=== PATIENT | female | born 1935 | race Caucasian/White ===

== ENCOUNTER 2022-06-30 22:05 | Inpatient (IN) | payer OTHER ==
[~2022-06-30] VITALS: Ht 157.5 cm; Wt 59.0 kg
[~2022-06-30 22:05] MED LIST: ALPR-341 PO; ASPI81TA47 PO; ATEN100T PO; ATOR80TA PO; IBUP-2030 PO
[2022-06-30] MEDS ORDERED: FUROSEMIDE 40MG/4ML VIAL IV ONE (22:15)
[2022-06-30] MEDS ORDERED: NITROGLYCERIN 50MG PREMIX 250 ML IV ONE (22:15)
[2022-06-30 22:33] LABS: BASOPHILS % 0.4 % (0.0-2.0); EOSINOPHILS % 2.1 % (0.0-5.0); HEMATOCRIT. 39.4 % (36.0-48.0); HEMOGLOBIN. 12.9 g/dL (12.0-16.0); LYMPHOCYTES % 19.3 % (20.0-50.0); MEAN CORPUSCULAR HEMOGLOBIN 29.9 pg (28.0-32.0); MEAN CORPUSCULAR VOLUME 91.4 fL (81.0-99.0); MEAN PLATELET VOLUME 8.4 fl (7.4-10.4); MONOCYTES % 6.5 % (2.0-8.0); NEUTROPHILS % 71.7 % (40.0-76.0); PLATELET 283 x1000/uL (130-400); RED BLOOD CELL COUNT 4.31 mill/uL (4.2-5.4); RED CELL DISTRIBUTION WIDTH 17.2 % (11.6-14.6)
[2022-06-30 22:43] LABS: CHLORIDE 108 mEq/L (98-107)
[2022-06-30 22:43] LABS: BG CARBOXYHEMOGLOBIN 0.6 % (0.5-1.5); BG FRACTION INSPIRED OXYGEN 50; BG HCO3 ACT 26.9 mmol/L (22.0-26.0); BG METHEMOGLOBIN 0.3 % (0.0-1.5); BG OXYGEN SATURATION 92.9 % (92.0-98.5); BG OXYHEMOGLOBIN 92.1 % (94.0-97.0); BG PCO2 47.8 mmHg (35.0-45.0); BG PH 7.368 (7.350-7.450); BG PO2 71.9 mmHg (75.0-100.0); BG SAMPLE SITE RIGHT RADIAL; BG TOTAL HEMOGLOBIN 12.8 g/dL (12.0-18.0); BG VENT MODE MASK - BIPAP
[2022-06-30 22:46] LABS: D-DIMER 1.58 mg/L FEU (<0.50); PARTIAL THROMBOPLASTIN TIME 27.9 sec (23.4-31.0); PROTHROMBIN TIME 11.2 sec (9.6-11.0)
[2022-07-01] VITALS (8 sets, daily range): BP systolic 116–142; BP diastolic 54–85
[2022-07-01] MEDS ORDERED: ACETAMINOPHEN 325MG TABLET PO PRN (00:15)
[2022-07-01] MEDS ORDERED: IPRATROPIUM/ALBUTEROL 0.5-3(2.5)MG/3ML NEB NEB PRN (00:15)
[2022-07-01] MEDS ORDERED: MAGNESIUM/ALUMINUM HYDROXIDE/SIMETHICONE 30ML UDC PO PRN (00:15)
[2022-07-01] MEDS ORDERED: CLONIDINE 0.1MG TABLET PO PRN (00:15)
[2022-07-01] MEDS ORDERED: IPRATROPIUM/ALBUTEROL 0.5-3(2.5)MG/3ML NEB NEB SCH (00:15)
[2022-07-01] MEDS ORDERED: ALBUTEROL (0.083%) 2.5MG/3ML NEB HHN PRN (00:45)
[2022-07-01] MEDS ORDERED: IPRATROPIUM BROMIDE (0.02%) 0.5MG/2.5ML NEB HHN PRN (00:45)
[2022-07-01] MEDS: IPRATROPIUM BROMIDE (0.02%) 0.5MG/2.5ML NEB HHN SCH ×2 (00:45→20:55)
[2022-07-01] MEDS: ALBUTEROL (0.083%) 2.5MG/3ML NEB HHN SCH ×3 (00:45→20:55)
[2022-07-01] MEDS ORDERED: DEXTROSE 50% WATER 50ML SYRINGE IV PRN (01:30)
[2022-07-01 01:31] LABS: CLARITY URINE CLEAR (CLEAR); COLOR URINE YELLOW (YELLOW); KETONES URINE NEGATIVE (NEGATIVE); LEUKOCYTE ESTERASE URINE NEGATIVE (NEGATIVE); NITRITE URINE NEGATIVE (NEGATIVE); OCCULT BLOOD URINE NEGATIVE (NEGATIVE); PROTEIN URINE NEGATIVE (NEGATIVE); SPECIFIC GRAVITY URINE 1.009 (1.005-1.030); UROBILINOGEN URINE 0.2 E.U./dL (0.2-1.0)
[2022-07-01 02:08] LABS: TOTAL IRON BINDING CAPACITY 277 ug/dL (250-450)
[2022-07-01 02:20] LABS: FERRITIN 83 ng/mL (10-291)
[2022-07-01 03:22] LABS: BG BASE EXCESS 3.8 mmol/L (-2.0-2.0); BG CARBOXYHEMOGLOBIN 0.3 % (0.5-1.5); BG DEOXYHEMOGLOBIN 2.2 % (0.0-5.0); BG FRACTION INSPIRED OXYGEN 100; BG HCO3 ACT 31.2 mmol/L (22.0-26.0); BG METHEMOGLOBIN 0.4 % (0.0-1.5); BG OXYGEN SATURATION 97.8 % (92.0-98.5); BG OXYHEMOGLOBIN 97.1 % (94.0-97.0); BG PCO2 61.1 mmHg (35.0-45.0); BG PH 7.326 (7.350-7.450); BG PO2 114.8 mmHg (75.0-100.0); BG SAMPLE SITE RIGHT RADIAL; BG TOTAL HEMOGLOBIN 12.3 g/dL (12.0-18.0); BG VENT MODE MASK - NRB
[2022-07-01 03:32] LABS: VITAMIN B12 SERUM 675 pg/mL (211-911)
[2022-07-01 05:04] LABS: BASOPHILS % 0.3 % (0.0-2.0); EOSINOPHILS % 0.3 % (0.0-5.0); HEMATOCRIT. 33.3 % (36.0-48.0); HEMOGLOBIN. 11.2 g/dL (12.0-16.0); LYMPHOCYTES % 14.6 % (20.0-50.0); MEAN CORPUSCULAR HEMOGLOBIN 30.5 pg (28.0-32.0); MEAN CORPUSCULAR VOLUME 91.1 fL (81.0-99.0); MEAN PLATELET VOLUME 8.3 fl (7.4-10.4); MONOCYTES % 6.8 % (2.0-8.0); PLATELET 211 x1000/uL (130-400); RED BLOOD CELL COUNT 3.66 mill/uL (4.2-5.4); RED CELL DISTRIBUTION WIDTH 16.9 % (11.6-14.6)
[2022-07-01 05:24] LABS: CHLORIDE 107 mEq/L (98-107)
[2022-07-01 05:41] LABS: CREATINE KINASE 61 IU/L (26-192); CREATINE KINASE MB FRACTION 2.6 ng/mL (0.5-3.6); HDL CHOLESTEROL 53 mg/dL (40-59); LDL CHOLESTEROL 48 mg/dL (5-100); T4 FREE 1.07 ng/dL (0.76-1.46)
[2022-07-01] MEDS ORDERED: IOHEXOL-350 100 ML BOTTLE ONE (07:14)
[2022-07-01 08:32] LABS: BG BASE EXCESS 4.8 mmol/L (-2.0-2.0); BG CARBOXYHEMOGLOBIN 0.3 % (0.5-1.5); BG DEOXYHEMOGLOBIN 2.4 % (0.0-5.0); BG FRACTION INSPIRED OXYGEN 50; BG HCO3 ACT 30.7 mmol/L (22.0-26.0); BG METHEMOGLOBIN 0.4 % (0.0-1.5); BG OXYGEN SATURATION 97.6 % (92.0-98.5); BG OXYHEMOGLOBIN 96.9 % (94.0-97.0); BG PCO2 51.8 mmHg (35.0-45.0); BG PH 7.391 (7.350-7.450); BG PO2 110.4 mmHg (75.0-100.0); BG SAMPLE SITE RIGHT RADIAL; BG TOTAL HEMOGLOBIN 11.3 g/dL (12.0-18.0); BG VENT MODE MASK - BIPAP
[2022-07-01] MEDS ORDERED: FUROSEMIDE 40MG/4ML VIAL IV SCH (09:00)
[2022-07-01] MEDS: ACETAMINOPHEN 325MG TABLET PO PRN (09:54)
[2022-07-01] MEDS: PANTOPRAZOLE SODIUM 40 MG/VIAL IV SCH (09:54)
[2022-07-01] MEDS: LOSARTAN POTASSIUM 25 MG TABLET PO SCH (09:56)
[2022-07-01] MEDS: ENOXAPARIN 30MG/0.3ML SYR SUBCUT SCH (09:56)
[2022-07-01] MEDS: POTASSIUM CHLORIDE 20MEQ TABLET SR PO SCH (11:04)
[2022-07-01] MEDS: BLOOD SUGAR DIAGNOSTIC STRIP TEST SCH ×3 (12:17→20:41)
[2022-07-01] MEDS: INSULIN LISPRO 100 UNITS/ML SUBCUT SCH ×3 (13:00→20:50)
[2022-07-01] MEDS: FERROUS SULFATE 325MG TABLET PO SCH (17:11)
[2022-07-01] MEDS: FUROSEMIDE 40MG/4ML VIAL IV SCH (17:11)
[2022-07-01 17:46] LABS: CREATINE KINASE MB FRACTION 2.7 ng/mL (0.5-3.6)
[2022-07-01] MEDS: ATORVASTATIN CALCIUM 40MG TABLET PO SCH (20:42)
[2022-07-01] MEDS ORDERED: ATORVASTATIN CALCIUM 40MG TABLET PO SCH (21:00)
[2022-07-02] VITALS (11 sets, daily range): BP systolic 108–162; BP diastolic 45–79
[2022-07-02] MEDS: IPRATROPIUM BROMIDE (0.02%) 0.5MG/2.5ML NEB HHN SCH ×4 (02:11→22:30)
[2022-07-02] MEDS: ALBUTEROL (0.083%) 2.5MG/3ML NEB HHN SCH ×4 (02:11→22:30)
[2022-07-02 06:28] LABS: PHOSPHORUS 3.2 mg/dL (2.5-4.9)
[2022-07-02 06:32] LABS: BASOPHILS % 0.3 % (0.0-2.0); EOSINOPHILS % 1.6 % (0.0-5.0); HEMATOCRIT. 32.2 % (36.0-48.0); LYMPHOCYTES % 18.9 % (20.0-50.0); MEAN CORPUSCULAR HEMOGLOBIN 30.7 pg (28.0-32.0); MEAN PLATELET VOLUME 8.6 fl (7.4-10.4); MONOCYTES % 8.5 % (2.0-8.0); NEUTROPHILS % 70.7 % (40.0-76.0); PLATELET 195 x1000/uL (130-400); RED BLOOD CELL COUNT 3.57 mill/uL (4.2-5.4); RED CELL DISTRIBUTION WIDTH 16.6 % (11.6-14.6)
[2022-07-02] MEDS: INSULIN LISPRO 100 UNITS/ML SUBCUT SCH ×4 (07:55→21:00)
[2022-07-02] MEDS: BLOOD SUGAR DIAGNOSTIC STRIP TEST SCH ×4 (07:55→21:00)
[2022-07-02] MEDS: LOSARTAN POTASSIUM 25 MG TABLET PO SCH (09:50)
[2022-07-02] MEDS: PANTOPRAZOLE SODIUM 40 MG/VIAL IV SCH (09:50)
[2022-07-02] MEDS: POTASSIUM CHLORIDE 20MEQ TABLET SR PO SCH (09:50)
[2022-07-02] MEDS: ASPIRIN 81MG TABLET PO SCH (09:50)
[2022-07-02] MEDS: FUROSEMIDE 40MG/4ML VIAL IV SCH ×2 (09:50→16:57)
[2022-07-02] MEDS: ENOXAPARIN 30MG/0.3ML SYR SUBCUT SCH (09:50)
[2022-07-02] MEDS ORDERED: POTASSIUM CHLORIDE 20MEQ/PACKET PO NR (11:30)
[2022-07-02] MEDS: FERROUS SULFATE 325MG TABLET PO SCH ×2 (13:17→17:59)
[2022-07-02] MEDS: ACETAMINOPHEN 325MG TABLET PO PRN (16:57)
[2022-07-02] MEDS: ALPRAZOLAM 0.5 MG TABLET PO SCH (21:02)
[2022-07-02] MEDS: ATORVASTATIN CALCIUM 40MG TABLET PO SCH (21:02)
[2022-07-02] MEDS: QUETIAPINE FUMARATE 25MG TABLET PO SCH (21:02)
[2022-07-03] VITALS (11 sets, daily range): BP systolic 94–144; BP diastolic 38–75
[2022-07-03] MEDS: IPRATROPIUM BROMIDE (0.02%) 0.5MG/2.5ML NEB HHN SCH ×4 (02:10→20:32)
[2022-07-03] MEDS: ALBUTEROL (0.083%) 2.5MG/3ML NEB HHN SCH ×4 (02:10→20:32)
[2022-07-03 06:15] LABS: HEMATOCRIT 32.7 % (36.0-48.0); HEMOGLOBIN 10.9 g/dL (12.0-16.0); MEAN CORPUSCULAR HEMOGLOBIN 30.5 pg (28.0-32.0); MEAN CORPUSCULAR VOLUME 91.6 fL (81.0-99.0); PLATELET 208 x1000/uL (130-400); RED BLOOD CELL COUNT 3.57 mill/uL (4.2-5.4); RED CELL DISTRIBUTION WIDTH 16.8 % (11.6-14.6)
[2022-07-03 07:39] LABS: PHOSPHORUS 3.7 mg/dL (2.5-4.9)
[2022-07-03] MEDS: INSULIN LISPRO 100 UNITS/ML SUBCUT SCH ×4 (08:00→21:00)
[2022-07-03] MEDS: BLOOD SUGAR DIAGNOSTIC STRIP TEST SCH ×4 (08:29→21:00)
[2022-07-03 08:31] LABS: BG BASE EXCESS 5.4 mmol/L (-2.0-2.0); BG CARBOXYHEMOGLOBIN 0.3 % (0.5-1.5); BG DEOXYHEMOGLOBIN 2.9 % (0.0-5.0); BG FRACTION INSPIRED OXYGEN 36; BG HCO3 ACT 31.4 mmol/L (22.0-26.0); BG METHEMOGLOBIN 0.4 % (0.0-1.5); BG OXYGEN SATURATION 97.1 % (92.0-98.5); BG OXYHEMOGLOBIN 96.4 % (94.0-97.0); BG PH 7.391 (7.350-7.450); BG PO2 102.4 mmHg (75.0-100.0); BG SAMPLE SITE LEFT RADIAL; BG TOTAL HEMOGLOBIN 11.5 g/dL (12.0-18.0)
[2022-07-03] MEDS: ENOXAPARIN 30MG/0.3ML SYR SUBCUT SCH (09:00)
[2022-07-03] MEDS: FAMOTIDINE 20MG/2ML VIAL IV SCH (11:20)
[2022-07-03] MEDS: FUROSEMIDE 40MG/4ML VIAL IV SCH ×2 (11:20→18:04)
[2022-07-03] MEDS: LOSARTAN POTASSIUM 25 MG TABLET PO SCH (11:20)
[2022-07-03] MEDS: POTASSIUM CHLORIDE 20MEQ TABLET SR PO SCH (11:21)
[2022-07-03] MEDS: FERROUS SULFATE 325MG TABLET PO SCH ×3 (11:22→18:04)
[2022-07-03] MEDS: ASPIRIN 81MG TABLET PO SCH (11:22)
[2022-07-03 19:07] LABS: FOLIC ACID (FOLATE) SERUM > 20.00 ng/mL (>5.38)
[2022-07-03] MEDS: ATORVASTATIN CALCIUM 40MG TABLET PO SCH (21:03)
[2022-07-03] MEDS: ACETAMINOPHEN 325MG TABLET PO PRN (21:04)
[2022-07-03] MEDS: ALPRAZOLAM 0.5 MG TABLET PO SCH (21:04)
[2022-07-03] MEDS: QUETIAPINE FUMARATE 25MG TABLET PO SCH (21:04)
[2022-07-04] VITALS (9 sets, daily range): BP systolic 95–131; BP diastolic 45–94
[2022-07-04] MEDS: ALBUTEROL (0.083%) 2.5MG/3ML NEB HHN SCH ×3 (02:02→13:53)
[2022-07-04] MEDS: IPRATROPIUM BROMIDE (0.02%) 0.5MG/2.5ML NEB HHN SCH ×3 (02:02→13:53)
[2022-07-04 05:59] LABS: HEMATOCRIT 33.7 % (36.0-48.0); HEMOGLOBIN 11.1 g/dL (12.0-16.0); MEAN CORPUSCULAR HEMOGLOBIN 29.8 pg (28.0-32.0); MEAN CORPUSCULAR VOLUME 90.9 fL (81.0-99.0); PLATELET 216 x1000/uL (130-400); RED BLOOD CELL COUNT 3.71 mill/uL (4.2-5.4); RED CELL DISTRIBUTION WIDTH 17.1 % (11.6-14.6)
[2022-07-04] MEDS: INSULIN LISPRO 100 UNITS/ML SUBCUT SCH ×2 (08:00→12:10)
[2022-07-04] MEDS: BLOOD SUGAR DIAGNOSTIC STRIP TEST SCH ×2 (08:17→12:10)
[2022-07-04 08:25] LABS: CHLORIDE 109 mEq/L (98-107)
[2022-07-04 08:36] LABS: PHOSPHORUS 4.2 mg/dL (2.5-4.9)
[2022-07-04] MEDS: FERROUS SULFATE 325MG TABLET PO SCH ×2 (08:41→12:15)
[2022-07-04] MEDS: ASPIRIN 81MG TABLET PO SCH (08:41)
[2022-07-04] MEDS: FAMOTIDINE 20MG/2ML VIAL IV SCH (08:41)
[2022-07-04] MEDS: POTASSIUM CHLORIDE 20MEQ TABLET SR PO SCH (08:41)
[2022-07-04] MEDS: FUROSEMIDE 40MG/4ML VIAL IV SCH ×2 (08:41→08:49)
[2022-07-04] MEDS: ENOXAPARIN 30MG/0.3ML SYR SUBCUT SCH (08:41)
[2022-07-04] MEDS: LOSARTAN POTASSIUM 25 MG TABLET PO SCH (08:41)
[2022-07-04 09:04] LABS: BG BASE EXCESS 1.7 mmol/L (-2.0-2.0); BG CARBOXYHEMOGLOBIN 0.5 % (0.5-1.5); BG DEOXYHEMOGLOBIN 7.9 % (0.0-5.0); BG FRACTION INSPIRED OXYGEN 21; BG HCO3 ACT 25.7 mmol/L (22.0-26.0); BG OXYGEN SATURATION 92.1 % (92.0-98.5); BG OXYHEMOGLOBIN 91.6 % (94.0-97.0); BG PCO2 38.5 mmHg (35.0-45.0); BG PH 7.443 (7.350-7.450); BG PO2 63.4 mmHg (75.0-100.0); BG SAMPLE SITE LEFT RADIAL; BG TOTAL HEMOGLOBIN 12.7 g/dL (12.0-18.0); BG VENT MODE ROOM AIR
[2022-07-04] MEDS ORDERED: LOSA25TA3 PO (10:13)
[2022-07-04] MEDS ORDERED: FERR-63 PO (10:13)
[2022-07-04] MEDS ORDERED: FURO-152 MT (10:18)
[2022-07-04] MEDS: FUROSEMIDE 40MG TABLET PO SCH ×2 (11:00→12:15)
[2022-07-05] MEDS ORDERED: LOSARTAN POTASSIUM 50 MG TABLET PO SCH (09:00)
== END 2022-07-04 14:50 | disposition home health service (06) | DRG 291 ==
LOC: ER 22:05 → MICUSO 22:26 → EDBEDREQ 22:30 → EDBEDREQTM 22:30 → 5EST 07-01 09:50
PROVIDERS: ADMIT Internal Medicine; ATTEND Internal Medicine
PROC: 5A09357 Assistance with Respiratory Ventilation, Less than 24 Consecutive Hours, Continuous Positive Airway Pressure (ICD-10-PCS; principal; 2022-06-30)
PROC: 5A09357 Assistance with Respiratory Ventilation, Less than 24 Consecutive Hours, Continuous Positive Airway Pressure (ICD-10-PCS; 2022-07-01)
DX: I11.0 Hypertensive heart disease with heart failure (principal); J96.01 Acute respiratory failure with hypoxia; E87.29 Other acidosis; I16.0 Hypertensive urgency; I50.9 Heart failure, unspecified; I08.1 Rheumatic disorders of both mitral and tricuspid valves; G47.00 Insomnia, unspecified; F41.9 Anxiety disorder, unspecified; E87.6 Hypokalemia; Z20.822 Contact with and (suspected) exposure to COVID-19; E78.5 Hyperlipidemia, unspecified; I25.2 Old myocardial infarction; Z88.5 Allergy status to narcotic agent; Z79.899 Other long term (current) drug therapy
CPT/HCPCS: 36415; 36600; 71045; 71275; 80048; 80053; 80061; 81003; 82375; 82550; 82553; 82607; 82728; 82746; 82805; 82962; 83036; 83540; 83550; 83735; 83880; 84100; 84145; 84439; 84443; 84484; 85025; 85027; 85379; 87426; 87804; 93005; 93306; 93970; 94618; 94640; 94660; 97116; 97162; 97166; 99291; A6261; C9113; C9803; J1650; J1815; J1940; J3490; Q9967

== ENCOUNTER 2023-12-01 13:31 | Inpatient (IN) | payer OTHER ==
[~2023-12-01] VITALS: Ht 157.5 cm; Wt 52.3 kg
[~2023-12-01 13:31] MED LIST changes: +FERR-63 PO; +FURO-152 MT; +LOSA-412 PO
[2023-12-01 14:50] LABS: BASOPHILS % 0.5 % (0.0-2.0); EOSINOPHILS % 1.6 % (0.0-5.0); HEMATOCRIT. 40.3 % (36.0-48.0); HEMOGLOBIN. 13.4 g/dL (12.0-16.0); MEAN CORPUSCULAR HEMOGLOBIN 32.6 pg (28.0-32.0); MEAN CORPUSCULAR HGB CONC 33.3 g/dL (31.0-37.0); MEAN CORPUSCULAR VOLUME 97.7 fL (81.0-99.0); MEAN PLATELET VOLUME 8.7 fl (7.4-10.4); NEUTROPHILS % 74.9 % (40.0-76.0); PLATELET 177 x1000/uL (130-400); RED BLOOD CELL COUNT 4.13 mill/uL (4.2-5.4); RED CELL DISTRIBUTION WIDTH 14.1 % (11.6-14.6); WHITE BLOOD COUNT 7.8 x1000/uL (4.5-11.0)
[2023-12-01 14:57] LABS: CHLORIDE 106 mEq/L (98-107); POTASSIUM 4.1 mEq/L (3.5-5.1); SODIUM 142 mEq/L (136-145)
[2023-12-01 14:58] LABS: CARBON DIOXIDE 30 mEq/L (21-32)
[2023-12-01 14:59] LABS: CALCIUM 9.3 mg/dL (8.7-10.4)
[2023-12-01 15:03] LABS: GLUCOSE 181 mg/dL (70-105); UREA NITROGEN BLOOD 31 mg/dL (9-23)
[2023-12-01 15:12] VITALS: PULSE 85; RESP 20; O2SAT 88
[2023-12-01] MEDS: ALBUTEROL (0.083%) 2.5MG/3ML NEB HHN STA (15:12)
[2023-12-01 15:20] LABS: D-DIMER 0.88 mg/L FEU (<0.50); PARTIAL THROMBOPLASTIN TIME 27.1 sec (23.4-31.0); PROTHROMBIN TIME 10.8 sec (9.6-11.0)
[2023-12-01 15:37] LABS: TROPONIN I HIGH SENSITIVITY 83 ng/L (3.0-34)
[2023-12-01 16:19] LABS: BG SAMPLE SITE RIGHT BRACHIAL; BG VENT MODE ROOM AIR
[2023-12-01 16:20] LABS: BG BASE EXCESS 3.5 mmol/L (-2.0-2.0); BG DEOXYHEMOGLOBIN 5.5 % (0.0-5.0); BG FRACTION INSPIRED OXYGEN 21; BG HCO3 ACT 28.5 mmol/L (22.0-26.0); BG METHEMOGLOBIN 0.3 % (0.0-1.5); BG OXYGEN SATURATION 94.4 % (92.0-98.5); BG OXYHEMOGLOBIN 93.2 % (94.0-97.0); BG PCO2 44.8 mmHg (35.0-45.0); BG PH 7.422 (7.350-7.450); BG TOTAL HEMOGLOBIN 13.6 g/dL (12.0-18.0)
[2023-12-01] MEDS: FUROSEMIDE 40MG/4ML VIAL IVP ONE (17:31)
[2023-12-01] MEDS: IOHEXOL-350 100 ML BOTTLE ONE (17:32)
[2023-12-01 18:26] LABS: TROPONIN I HIGH SENSITIVITY 99 ng/L (3.0-34)
[2023-12-01] MEDS ORDERED: MAGNESIUM/ALUMINUM HYDROXIDE/SIMETHICONE 30ML UDC PO PRN (22:15)
[2023-12-01] MEDS ORDERED: IPRATROPIUM/ALBUTEROL 0.5-3(2.5)MG/3ML NEB HHN PRN (22:15)
[2023-12-01] MEDS ORDERED: GUAIFENESIN 200MG/10ML SUGAR FREE UDC PO PRN (22:15)
[2023-12-01] MEDS ORDERED: ACETAMINOPHEN 325MG TABLET PO PRN ×2 (22:15)
[2023-12-01] MEDS ORDERED: ONDANSETRON HCL 4MG/2ML INJ IV PRN (22:15)
[2023-12-01] MEDS ORDERED: CLONIDINE 0.1MG TABLET PO PRN (22:15)
[2023-12-01 22:25] LABS: TROPONIN I HIGH SENSITIVITY 92 ng/L (3.0-34)
[2023-12-01 23:32] LABS: TRIGLYCERIDE 40 mg/dL (0-150)
[2023-12-01 23:33] LABS: LDL CHOLESTEROL 62 mg/dL (5-100)
[2023-12-01 23:34] LABS: ALANINE AMINOTRANSFERASE 22 IU/L (10-49); ALBUMIN 3.8 g/dL (3.2-4.8); ASPARTATE AMINOTRANSFERASE 29 IU/L (<34); BILIRUBIN DIRECT 0.1 mg/dL (<=3.0); CHOLESTEROL 130 mg/dL (<200); HDL CHOLESTEROL 54 mg/dL (>65); PHOSPHORUS 3.9 mg/dL (2.5-4.9)
[2023-12-01 23:35] LABS: BILIRUBIN TOTAL 0.4 mg/dL (0.1-1.0); PROTEIN TOTAL 6.1 g/dL (6.0-8.3)
[2023-12-01 23:36] LABS: T4 FREE 1.23 ng/dL (0.89-1.76)
[2023-12-01 23:37] LABS: THYROID STIMULATING HORMONE 0.95 uIU/mL (0.55-4.78)
[2023-12-01] MEDS: IOHEXOL-300 100 ML BOTTLE ONE (23:37)
[2023-12-02] MEDS ORDERED: FUROSEMIDE 40MG/4ML VIAL IVP SCH (09:00)
[2023-12-02] MEDS: FUROSEMIDE 40MG/4ML VIAL IVP SCH (10:01)
[2023-12-02] MEDS: ASPIRIN 81MG TABLET PO SCH (10:04)
[2023-12-02] MEDS: PANTOPRAZOLE SODIUM 40 MG/VIAL IV SCH (10:05)
[2023-12-02] MEDS: TRAMADOL 50MG TABLET PO PRN (10:05)
[2023-12-02 10:26] LABS: BASOPHILS % 0.5 % (0.0-2.0); EOSINOPHILS % 2.3 % (0.0-5.0); HEMATOCRIT. 40.7 % (36.0-48.0); HEMOGLOBIN. 13.4 g/dL (12.0-16.0); LYMPHOCYTES % 21.2 % (20.0-50.0); MEAN CORPUSCULAR HEMOGLOBIN 32.3 pg (28.0-32.0); MEAN CORPUSCULAR HGB CONC 32.9 g/dL (31.0-37.0); MEAN CORPUSCULAR VOLUME 98.1 fL (81.0-99.0); MEAN PLATELET VOLUME 9.1 fl (7.4-10.4); MONOCYTES % 11.5 % (2.0-8.0); NEUTROPHILS % 64.5 % (40.0-76.0); PLATELET 154 x1000/uL (130-400); RED BLOOD CELL COUNT 4.15 mill/uL (4.2-5.4); RED CELL DISTRIBUTION WIDTH 14.5 % (11.6-14.6); WHITE BLOOD COUNT 6.8 x1000/uL (4.5-11.0)
[2023-12-02 10:45] LABS: CARBON DIOXIDE 29 mEq/L (21-32); CHLORIDE 106 mEq/L (98-107); POTASSIUM 3.7 mEq/L (3.5-5.1); SODIUM 143 mEq/L (136-145)
[2023-12-02 10:46] LABS: CALCIUM 8.8 mg/dL (8.7-10.4)
[2023-12-02 10:49] LABS: CREATINE KINASE 89 IU/L (34-145)
[2023-12-02 10:51] LABS: CREATININE 0.9 mg/dL (0.6-1.0); GLUCOSE 107 mg/dL (70-105); UREA NITROGEN BLOOD 27 mg/dL (9-23)
[2023-12-02 10:53] LABS: PHOSPHORUS 4.5 mg/dL (2.5-4.9)
[2023-12-02] MEDS: METOPROLOL TARTRATE 5MG/5ML VIAL IV NR (11:20)
[2023-12-02 11:36] LABS: TROPONIN I HIGH SENSITIVITY 1279 ng/L (3.0-34)
[2023-12-02] MEDS: DIGOXIN 500MCG/2ML AMP IV NR (12:00)
[2023-12-02] MEDS: METOPROLOL TARTRATE 50MG TABLET PO SCH (12:00)
[2023-12-02] MEDS ORDERED: METOPROLOL TARTRATE 5MG/5ML VIAL IV PRN (12:00)
[2023-12-02] MEDS: DIGOXIN 500MCG/2ML AMP IV SCH (15:21)
[2023-12-02 15:51] LABS: CREATINE KINASE 114 IU/L (34-145)
[2023-12-02 16:00] VITALS: BP 122/84; PULSE 119; RESP 29; TEMP 36.89184; O2SAT 94
[2023-12-02 16:02] LABS: TROPONIN I HIGH SENSITIVITY 3241 ng/L (3.0-34)
[2023-12-02 16:26] VITALS: BP 116/58; PULSE 98; RESP 14; TEMP 36.696
[2023-12-02] MEDS ORDERED: NITROGLYCERIN 0.4MG TABLET SL SL PRN (16:30)
[2023-12-02] MEDS ORDERED: NALOXONE HCL 0.4MG/ML VIAL IV PRN (17:00)
[2023-12-02] MEDS: HYDROCODONE/ACETAMINOPHEN 5/325MG TABLET PO PRN (17:23)
[2023-12-02] MEDS: DOCUSATE SODIUM 100MG CAPSULE PO PRN (18:15)
[2023-12-02 20:00] VITALS: BP 142/97; PULSE 131; RESP 25; TEMP 36.3918; O2SAT 92
[2023-12-02] MEDS: QUETIAPINE FUMARATE 25MG TABLET PO SCH (20:02)
[2023-12-02] MEDS: ATORVASTATIN CALCIUM 40MG TABLET PO SCH (20:02)
[2023-12-03] VITALS (10 sets, daily range): BP systolic 95–121; BP diastolic 57–80; PULSE 70–102; RESP 15–24; TEMP 36.22512–36.72516; O2SAT 93–98
[2023-12-03] MEDS ORDERED: DEXTROSE 50% WATER 50ML SYRINGE IV PRN (00:15)
[2023-12-03 00:50] LABS: TROPONIN I HIGH SENSITIVITY 2030 ng/L (3.0-34)
[2023-12-03] MEDS: ALBUTEROL (0.083%) 2.5MG/3ML NEB HHN SCH (04:10)
[2023-12-03] MEDS: BLOOD SUGAR DIAGNOSTIC STRIP TEST SCH (06:21)
[2023-12-03 06:43] LABS: CHLORIDE 105 mEq/L (98-107); POTASSIUM 4.3 mEq/L (3.5-5.1); SODIUM 142 mEq/L (136-145)
[2023-12-03 06:44] LABS: CALCIUM 9.1 mg/dL (8.7-10.4); CARBON DIOXIDE 32 mEq/L (21-32)
[2023-12-03 06:49] LABS: GLUCOSE 117 mg/dL (70-105)
[2023-12-03 06:50] LABS: UREA NITROGEN BLOOD 33 mg/dL (9-23)
[2023-12-03 06:52] LABS: PHOSPHORUS 4.6 mg/dL (2.5-4.9)
[2023-12-03 07:18] LABS: HEMATOCRIT 40.4 % (36.0-48.0); HEMOGLOBIN 13.4 g/dL (12.0-16.0); MEAN CORPUSCULAR HEMOGLOBIN 32.5 pg (28.0-32.0); MEAN CORPUSCULAR HGB CONC 33.2 g/dL (31.0-37.0); PLATELET 154 x1000/uL (130-400); RED BLOOD CELL COUNT 4.13 mill/uL (4.2-5.4); RED CELL DISTRIBUTION WIDTH 14.3 % (11.6-14.6); WHITE BLOOD COUNT 6.4 x1000/uL (4.5-11.0)
[2023-12-03] MEDS: INSULIN LISPRO 100 UNITS/ML SUBCUT SCH (07:20)
[2023-12-03 07:46] LABS: TROPONIN I HIGH SENSITIVITY 1941 ng/L (3.0-34)
[2023-12-03 08:22] LABS: CLARITY URINE CLEAR (CLEAR); COLOR URINE YELLOW (YELLOW); GLUCOSE URINE NEGATIVE (NEGATIVE); KETONES URINE NEGATIVE (NEGATIVE); LEUKOCYTE ESTERASE URINE 2+ (NEGATIVE); NITRITE URINE NEGATIVE (NEGATIVE); OCCULT BLOOD URINE NEGATIVE (NEGATIVE); PH URINE 5.5 (4.5-8.0); PROTEIN URINE NEGATIVE (NEGATIVE); SPECIFIC GRAVITY URINE 1.024 (1.005-1.030); UROBILINOGEN URINE 0.2 E.U./dL (0.2-1.0)
[2023-12-03 08:48] LABS: *AMPHETAMINES SCREEN URINE NEGATIVE (NEGATIVE)
[2023-12-03 08:49] LABS: *BARBITURATES SCREEN URINE PRESUMPTIVE POSITIVE (NEGATIVE); *BENZODIAZEPINES SCREEN URINE PRESUMPTIVE POSITIVE (NEGATIVE); *COCAINE SCREEN URINE NEGATIVE (NEGATIVE); CANNABINOID URINE SCREEN NEGATIVE (NEGATIVE); ECSTASY MDMA SCREEN URINE NEGATIVE (NEGATIVE); METHADONE URINE SCREEN NEGATIVE (NEGATIVE); OPIATES URINE SCREEN PRESUMPTIVE POSITIVE (NEGATIVE); PHENCYCLIDINE URINE SCREEN NEGATIVE (NEGATIVE)
[2023-12-03] MEDS: SPIRONOLACTONE 25MG TABLET PO SCH (09:12)
[2023-12-03 09:43] LABS: SQUAMOUS EPITHELIAL CELL URINE 3+ /lpf (RARE/1+)
[2023-12-03 09:44] LABS: BACTERIA URINE 1+; WBC URINE 50-100 /hpf (0-2)
[2023-12-03 09:45] LABS: RBC URINE NONE SEEN /hpf (0-2)
[2023-12-03] MEDS: ENOXAPARIN 60MG/0.6ML SYR SUBCUT SCH (11:25)
[2023-12-03 13:18] LABS: TROPONIN I HIGH SENSITIVITY 1372 ng/L (3.0-34)
[2023-12-03] MEDS ORDERED: DIGO125T80 PO (18:34)
[2023-12-03] MEDS ORDERED: SPIR25TA PO (18:34)
[2023-12-03] MEDS ORDERED: METO-539 PO (18:34)
[2023-12-03] MEDS ORDERED: APIX2.5T PO (18:34)
== END 2023-12-03 20:14 | disposition home or self-care (01) | DRG 280 ==
LOC: ER 14:29 → 5WST 17:20 → EDBEDREQ 18:20 → EDBEDREQTM 18:20 → 3WST 12-02 15:38
PROVIDERS: ADMIT Hospitalist; ATTEND Hospitalist
DX: I11.0 Hypertensive heart disease with heart failure (principal); I50.43 Acute on chronic combined systolic (congestive) and diastolic (congestive) heart failure; I21.A1 Myocardial infarction type 2; J96.01 Acute respiratory failure with hypoxia; I31.39 Other pericardial effusion (noninflammatory); F41.9 Anxiety disorder, unspecified; I42.9 Cardiomyopathy, unspecified; M54.9 Dorsalgia, unspecified; Z20.822 Contact with and (suspected) exposure to COVID-19; I34.0 Nonrheumatic mitral (valve) insufficiency; I25.10 Atherosclerotic heart disease of native coronary artery without angina pectoris; Z91.148 Patient's other noncompliance with medication regimen for other reason; I48.91 Unspecified atrial fibrillation; M41.9 Scoliosis, unspecified; E78.5 Hyperlipidemia, unspecified; Z79.899 Other long term (current) drug therapy; Z79.82 Long term (current) use of aspirin; Z87.891 Personal history of nicotine dependence; Z90.49 Acquired absence of other specified parts of digestive tract; Z88.5 Allergy status to narcotic agent
CPT/HCPCS: 36415; 36600; 71045; 71275; 80048; 80061; 80076; 80305; 81003; 82375; 82550; 82805; 82962; 83735; 83880; 84100; 84145; 84439; 84443; 84484; 85025; 85027; 85379; 87426; 93005; 93306; 94618; 94640; 99291; C1893; J1160; J1650; J1940; J2470; J3490; Q9967

== ENCOUNTER 2023-12-19 17:40 | Inpatient (IN) | payer OTHER, MEDICAID, MEDICARE ==
[~2023-12-19] VITALS: Ht 162.6 cm; Wt 47.6 kg
[~2023-12-19 17:40] MED LIST changes: +APIX2.5T PO; -ATEN100T PO; +DIGO125T80 PO; +METO-539 PO; +SPIR25TA PO
[2023-12-19 17:42] VITALS: PULSE 95; RESP 16; O2SAT 98
[2023-12-19] MEDS ORDERED: DEXMEDETOMIDINE 400 MCG/100 ML 100 ML IV SCH (18:00)
[2023-12-19 18:11] LABS: BASOPHILS % 0.6 % (0.0-2.0); DIFFERENTIAL COMMENT 0; EOSINOPHILS % 0.9 % (0.0-5.0); HEMATOCRIT. 38.8 % (36.0-48.0); HEMOGLOBIN. 12.7 g/dL (12.0-16.0); LYMPHOCYTES % 16.3 % (20.0-50.0); MEAN CORPUSCULAR HEMOGLOBIN 32.7 pg (28.0-32.0); MEAN CORPUSCULAR HGB CONC 32.6 g/dL (31.0-37.0); MEAN CORPUSCULAR VOLUME 100.2 fL (81.0-99.0); MEAN PLATELET VOLUME 9.8 fl (7.4-10.4); NEUTROPHILS % 76.2 % (40.0-76.0); PLATELET 273 x1000/uL (130-400); RED BLOOD CELL COUNT 3.88 mill/uL (4.2-5.4); RED CELL DISTRIBUTION WIDTH 14.1 % (11.6-14.6); WHITE BLOOD COUNT 9.8 x1000/uL (4.5-11.0)
[2023-12-19] MEDS ORDERED: DEXMEDETOMIDINE 400 MCG/100 ML 100 ML IV PRN (18:15)
[2023-12-19 18:28] LABS: CHLORIDE 98 mEq/L (98-107); SODIUM 138 mEq/L (136-145)
[2023-12-19 18:29] LABS: CALCIUM 8.7 mg/dL (8.7-10.4); CARBON DIOXIDE 34 mEq/L (21-32)
[2023-12-19 18:34] LABS: GLUCOSE 342 mg/dL (70-105); UREA NITROGEN BLOOD 45 mg/dL (9-23)
[2023-12-19 18:34] LABS: BG CARBOXYHEMOGLOBIN 0.4 % (0.5-1.5); BG DEOXYHEMOGLOBIN 1.7 % (0.0-5.0); BG FRACTION INSPIRED OXYGEN 60; BG METHEMOGLOBIN 0.3 % (0.5-1.5); BG OXYGEN SATURATION 98.3 % (94.0-98.0); BG OXYHEMOGLOBIN 97.6 % (94.0-98.0); BG PCO2 59.4 mmHg (32.0-45.0); BG PH 7.375 (7.350-7.450); BG PO2 113.9 mmHg (83.0-108.0); BG SAMPLE SITE RIGHT RADIAL; BG TOTAL HEMOGLOBIN 12.4 g/dL (12.0-16.0); BG VENT MODE VENT - AC
[2023-12-19 18:36] LABS: ALANINE AMINOTRANSFERASE 46 IU/L (10-49); ASPARTATE AMINOTRANSFERASE 81 IU/L (<34); BILIRUBIN DIRECT 0.1 mg/dL (<=3.0); BILIRUBIN TOTAL 0.5 mg/dL (0.1-1.0); PROTEIN TOTAL 6.8 g/dL (6.0-8.3)
[2023-12-19 18:39] LABS: CREATININE 1.5 mg/dL (0.6-1.0)
[2023-12-19 18:42] LABS: TROPONIN I HIGH SENSITIVITY 93 ng/L (3.0-34)
[2023-12-19 20:15] VITALS: PULSE 62; RESP 17; O2SAT 99
[2023-12-19] MEDS: KETAMINE HCL 100 MG in SODIUM CHLORIDE 0.9% 100 ML IV ONE (21:12)
[2023-12-19 21:17] VITALS: PULSE 62; RESP 17; O2SAT 99
[2023-12-19] MEDS ORDERED: LORAZEPAM 0.5MG TABLET PO PRN (22:00)
[2023-12-19] MEDS ORDERED: DOCUSATE SODIUM 100MG CAPSULE PO PRN (22:00)
[2023-12-19] MEDS ORDERED: CLONIDINE 0.1MG TABLET PO PRN (22:00)
[2023-12-19] MEDS ORDERED: ENOXAPARIN 40MG/0.4ML SYR SUBCUT SCH (22:00)
[2023-12-19] MEDS ORDERED: ZOLPIDEM TARTRATE 5MG TABLET PO PRN (22:00)
[2023-12-19] MEDS ORDERED: ENOXAPARIN 30MG/0.3ML SYR SUBCUT SCH (22:00)
[2023-12-19] MEDS ORDERED: ONDANSETRON HCL 4MG/2ML INJ IV PRN (22:00)
[2023-12-19] MEDS ORDERED: GUAIFENESIN 200MG/10ML SUGAR FREE UDC PO PRN (22:00)
[2023-12-19] MEDS ORDERED: IPRATROPIUM/ALBUTEROL 0.5-3(2.5)MG/3ML NEB HHN PRN (22:00)
[2023-12-20] VITALS (88 sets, daily range): BP systolic 78–162; BP diastolic 36–104; PULSE 56–137; RESP 10–27; TEMP 36.55848–37.8636; O2SAT 97–100
[2023-12-20 03:51] LABS: HEMATOCRIT 33.1 % (36.0-48.0); MEAN CORPUSCULAR HEMOGLOBIN 32.8 pg (28.0-32.0); MEAN CORPUSCULAR HGB CONC 33.3 g/dL (31.0-37.0); MEAN CORPUSCULAR VOLUME 98.5 fL (81.0-99.0); PLATELET 186 x1000/uL (130-400); RED BLOOD CELL COUNT 3.36 mill/uL (4.2-5.4); RED CELL DISTRIBUTION WIDTH 14.3 % (11.6-14.6); WHITE BLOOD COUNT 10.2 x1000/uL (4.5-11.0)
[2023-12-20 03:59] LABS: CHLORIDE 105 mEq/L (98-107); POTASSIUM 4.7 mEq/L (3.5-5.1); SODIUM 143 mEq/L (136-145)
[2023-12-20 04:00] LABS: CALCIUM 8.8 mg/dL (8.7-10.4); CARBON DIOXIDE 35 mEq/L (21-32)
[2023-12-20 04:05] LABS: CREATINE KINASE MB FRACTION 0.9 ng/mL (0.5-3.6); CREATININE 1.2 mg/dL (0.6-1.0); GLUCOSE 109 mg/dL (70-105); UREA NITROGEN BLOOD 52 mg/dL (9-23)
[2023-12-20 04:07] LABS: CREATINE KINASE 43 IU/L (34-145); PHOSPHORUS 3.5 mg/dL (2.5-4.9)
[2023-12-20 04:27] LABS: TROPONIN I HIGH SENSITIVITY 95 ng/L (3.0-34)
[2023-12-20] MEDS ORDERED: NOREPINEPHRINE 8MG/250ML PMX 250 ML IV ONE (06:30)
[2023-12-20] MEDS ORDERED: NOREPINEPHRINE 8MG/250ML PMX 250 ML IV PRN (06:45)
[2023-12-20] MEDS: MIDAZOLAM 100MG/100ML PMX 100 ML IV PRN (07:07)
[2023-12-20] MEDS: FENTANYL 2500MCG/250ML PMX 250 ML IV PRN (07:07)
[2023-12-20] MEDS ORDERED: LIDOCAINE HCL 1% 10 MG/ML 10ML VIAL ONE (08:06)
[2023-12-20 08:16] LABS: CLARITY URINE CLEAR (CLEAR); COLOR URINE YELLOW (YELLOW); GLUCOSE URINE NEGATIVE (NEGATIVE); KETONES URINE TRACE (NEGATIVE); LEUKOCYTE ESTERASE URINE NEGATIVE (NEGATIVE); NITRITE URINE NEGATIVE (NEGATIVE); OCCULT BLOOD URINE NEGATIVE (NEGATIVE); PROTEIN URINE NEGATIVE (NEGATIVE); SPECIFIC GRAVITY URINE 1.017 (1.005-1.030); UROBILINOGEN URINE 0.2 E.U./dL (0.2-1.0)
[2023-12-20] MEDS: FUROSEMIDE 40MG/4ML VIAL IVP SCH ×2 (08:36→17:49)
[2023-12-20] MEDS: PANTOPRAZOLE SODIUM 40 MG/VIAL IV SCH (08:36)
[2023-12-20] MEDS: LOSARTAN 25 MG TABLET PO SCH (08:37)
[2023-12-20] MEDS: FERROUS SULFATE 325MG TABLET PO SCH (08:37)
[2023-12-20] MEDS: SPIRONOLACTONE 25MG TABLET PO SCH (08:39)
[2023-12-20] MEDS: APIXABAN 2.5 MG TABLET PO SCH (08:40)
[2023-12-20] MEDS: ASPIRIN 81MG EC TABLET PO SCH (08:40)
[2023-12-20] MEDS ORDERED: METOPROLOL TARTRATE 50MG TABLET PO SCH (09:00)
[2023-12-20] MEDS ORDERED: MEDICATION NOT ON FORMULARY EA (Atorvastatin Calcium (Lipitor) 80 MG) PO SCH (09:00)
[2023-12-20] MEDS ORDERED: FUROSEMIDE 20MG TABLET PO SCH (09:00)
[2023-12-20 09:08] LABS: BG BASE EXCESS 8.4 mmol/L (-2.0-3.0); BG CARBOXYHEMOGLOBIN 0.1 % (0.5-1.5); BG FRACTION INSPIRED OXYGEN 50; BG HCO3 ACT 30.6 mmol/L (21.0-28.0); BG METHEMOGLOBIN 0.3 % (0.5-1.5); BG OXYHEMOGLOBIN 96.6 % (94.0-98.0); BG PH 7.572 (7.350-7.450); BG PO2 82.2 mmHg (83.0-108.0); BG SAMPLE SITE LEFT RADIAL; BG TOTAL HEMOGLOBIN 11.9 g/dL (12.0-16.0); BG VENT MODE VENT - AC
[2023-12-20] MEDS: PIPERACILLIN/TAZO 3.375G/50ML 50 ML IV SCH (09:45)
[2023-12-20] MEDS: AZITHROMYCIN 500MG/250ML 250 ML IV SCH (13:37)
[2023-12-20 17:07] LABS: CREATINE KINASE MB FRACTION 0.9 ng/mL (0.5-3.6)
[2023-12-20] MEDS: DIGOXIN 125MCG TABLET PO SCH (17:50)
[2023-12-20] MEDS: METOPROLOL TARTRATE 50MG TABLET PO SCH (19:39)
[2023-12-20] MEDS ORDERED: MEDICATION NOT ON FORMULARY EA (Alprazolam 1 MG) PO SCH (21:00)
[2023-12-20] MEDS: ALPRAZOLAM 0.5 MG TABLET PO SCH (21:13)
[2023-12-20] MEDS: ATORVASTATIN CALCIUM 40MG TABLET PO SCH (21:13)
[2023-12-21] VITALS (103 sets, daily range): BP systolic 78–132; BP diastolic 38–106; PULSE 55–135; RESP 11–29; TEMP 36.55848–36.9474; O2SAT 96–100
[2023-12-21] MEDS ORDERED: SODIUM CHLORIDE 3% FOR INH 15ML NEB INH PRN (04:15)
[2023-12-21 06:53] LABS: BASOPHILS % 0.3 % (0.0-2.0); EOSINOPHILS % 0.8 % (0.0-5.0); HEMOGLOBIN. 10.3 g/dL (12.0-16.0); LYMPHOCYTES % 11.3 % (20.0-50.0); MEAN CORPUSCULAR HEMOGLOBIN 33.7 pg (28.0-32.0); MEAN CORPUSCULAR HGB CONC 34.5 g/dL (31.0-37.0); MEAN CORPUSCULAR VOLUME 97.8 fL (81.0-99.0); MEAN PLATELET VOLUME 9.8 fl (7.4-10.4); NEUTROPHILS % 77.6 % (40.0-76.0); PLATELET 173 x1000/uL (130-400); RED BLOOD CELL COUNT 3.07 mill/uL (4.2-5.4)
[2023-12-21 07:08] LABS: CALCIUM 8.9 mg/dL (8.7-10.4); POTASSIUM 3.6 mEq/L (3.5-5.1)
[2023-12-21 07:13] LABS: CREATININE 1.4 mg/dL (0.6-1.0)
[2023-12-21 07:16] LABS: DIGOXIN 1.2 ng/mL (0.8-2.0)
[2023-12-21 08:02] LABS: CREATINE KINASE MB FRACTION 2.3 ng/mL (0.5-3.6)
[2023-12-21] MEDS: IPRATROPIUM/ALBUTEROL 0.5-3(2.5)MG/3ML NEB HHN SCH (08:07)
[2023-12-21] MEDS: ENOXAPARIN 60MG/0.6ML SYR SUBCUT SCH (09:23)
[2023-12-21 12:11] LABS: CREATINE KINASE MB FRACTION 1.8 ng/mL (0.5-3.6)
[2023-12-21] MEDS: SODIUM CHLORIDE 0.9% 500 ML IV NR (12:19)
[2023-12-21 22:43] LABS: CREATINE KINASE MB FRACTION 1.6 ng/mL (0.5-3.6)
[2023-12-22] VITALS (69 sets, daily range): BP systolic 71–133; BP diastolic 39–74; PULSE 59–121; RESP 13–28; TEMP 36.22512–37.16964; O2SAT 94–100
[2023-12-22 05:58] LABS: BASOPHILS % 0.6 % (0.0-2.0); HEMATOCRIT. 31.2 % (36.0-48.0); HEMOGLOBIN. 10.5 g/dL (12.0-16.0); LYMPHOCYTES % 10.6 % (20.0-50.0); MEAN CORPUSCULAR HEMOGLOBIN 32.9 pg (28.0-32.0); MEAN CORPUSCULAR HGB CONC 33.6 g/dL (31.0-37.0); MEAN CORPUSCULAR VOLUME 98.1 fL (81.0-99.0); MEAN PLATELET VOLUME 9.5 fl (7.4-10.4); MONOCYTES % 8.2 % (2.0-8.0); NEUTROPHILS % 78.6 % (40.0-76.0); PLATELET 191 x1000/uL (130-400); RED BLOOD CELL COUNT 3.19 mill/uL (4.2-5.4); RED CELL DISTRIBUTION WIDTH 14.1 % (11.6-14.6); WHITE BLOOD COUNT 9.4 x1000/uL (4.5-11.0)
[2023-12-22 06:09] LABS: INR 1.1; PROTHROMBIN TIME 11.8 sec (9.6-11.0)
[2023-12-22 06:17] LABS: POTASSIUM 3.4 mEq/L (3.5-5.1)
[2023-12-22 06:19] LABS: CALCIUM 8.6 mg/dL (8.7-10.4)
[2023-12-22 06:23] LABS: CREATININE 1.2 mg/dL (0.6-1.0)
[2023-12-22] MEDS ORDERED: MIDAZOLAM HCL 2 MG/2 ML VIAL ONE (08:27)
[2023-12-22] MEDS ORDERED: VERAPAMIL HCL 2.5 MG/1 ML 2ML VIAL IV ONE (08:27)
[2023-12-22] MEDS ORDERED: DIPHENHYDRAMINE 50MG/ML VIAL ONE (08:27)
[2023-12-22] MEDS ORDERED: IODIXANOL 320MG/ML 100 ML BOTTLE IV ONE ×2 (08:27→09:14)
[2023-12-22] MEDS ORDERED: LIDOCAINE HCL 1% 20ML VIAL ONE (08:27)
[2023-12-22] MEDS ORDERED: FENTANYL CITRATE/PF 50MCG/ML 2ML VIAL ONE (08:27)
[2023-12-22] MEDS ORDERED: HEPARIN 1000 UNITS/ML 10ML ONE (08:28)
[2023-12-22] MEDS ORDERED: ATROPINE SULFATE 1MG/10ML SYR ONE (09:28)
[2023-12-22] MEDS ORDERED: ATROPINE SULFATE 1MG/10ML SYR IV PRN (10:15)
[2023-12-22] MEDS: SODIUM CHLORIDE 0.45% 500 ML IV ONE (10:15)
[2023-12-22] MEDS ORDERED: ACETAMINOPHEN 325MG TABLET PO PRN (10:15)
[2023-12-22] MEDS: DEXT 5%/0.45% NACL 1000ML 1,000 ML IV SCH (13:32)
[2023-12-22] MEDS: DEXMEDETOMIDINE 400 MCG/100 ML 100 ML IV PRN (17:25)
[2023-12-22] MEDS ORDERED: LORAZEPAM 2MG/ML INJ IV PRN (17:45)
[2023-12-22] MEDS: LORAZEPAM 2MG/ML INJ IV PRN (18:16)
[2023-12-23] VITALS (63 sets, daily range): BP systolic 56–144; BP diastolic 38–86; PULSE 58–99; RESP 14–33; TEMP 36.3918–37.05852; O2SAT 93–100
[2023-12-23 05:56] LABS: BASOPHILS % 0.1 % (0.0-2.0); EOSINOPHILS % 0.8 % (0.0-5.0); HEMATOCRIT. 28.7 % (36.0-48.0); HEMOGLOBIN. 9.9 g/dL (12.0-16.0); LYMPHOCYTES % 8.6 % (20.0-50.0); MEAN CORPUSCULAR HEMOGLOBIN 33.3 pg (28.0-32.0); MEAN CORPUSCULAR HGB CONC 34.4 g/dL (31.0-37.0); MEAN CORPUSCULAR VOLUME 96.6 fL (81.0-99.0); MEAN PLATELET VOLUME 9.4 fl (7.4-10.4); MONOCYTES % 8.9 % (2.0-8.0); NEUTROPHILS % 81.6 % (40.0-76.0); PLATELET 183 x1000/uL (130-400); RED BLOOD CELL COUNT 2.97 mill/uL (4.2-5.4); RED CELL DISTRIBUTION WIDTH 13.7 % (11.6-14.6)
[2023-12-23 06:03] LABS: CALCIUM 8.3 mg/dL (8.7-10.4); POTASSIUM 3.4 mEq/L (3.5-5.1)
[2023-12-23 06:09] LABS: CREATININE 1.1 mg/dL (0.6-1.0)
[2023-12-23] MEDS: ASPIRIN 81MG TABLET PO SCH (08:13)
[2023-12-23] MEDS: CLOPIDOGREL 75MG TABLET PO SCH (08:14)
[2023-12-23] MEDS ORDERED: FUROSEMIDE 20MG TABLET PO SCH (11:00)
[2023-12-23] MEDS: POTASSIUM CHLORIDE 20MEQ/PACKET PO NR (11:07)
[2023-12-23] MEDS: APIXABAN 2.5 MG TABLET PO SCH (11:17)
[2023-12-23] MEDS: FUROSEMIDE 40MG TABLET PO SCH (12:39)
[2023-12-23] MEDS: DIPHENHYDRAMINE 25MG CAPSULE PO PRN (16:00)
[2023-12-23] MEDS: MAGNESIUM 2 G PREMIX 50 ML IV SCH (16:00)
[2023-12-23] MEDS ORDERED: MORPHINE SULFATE 2 MG/ML INJ (NOT FOR IM USE) IV PRN (18:30)
[2023-12-24] VITALS (52 sets, daily range): BP systolic 87–136; BP diastolic 38–81; PULSE 71–131; RESP 10–36; TEMP 36.44736–36.78072; O2SAT 85–100
[2023-12-24 06:07] LABS: BASOPHILS % 0.2 % (0.0-2.0); EOSINOPHILS % 2.7 % (0.0-5.0); HEMATOCRIT. 28.8 % (36.0-48.0); HEMOGLOBIN. 9.7 g/dL (12.0-16.0); LYMPHOCYTES % 10.2 % (20.0-50.0); MEAN CORPUSCULAR HEMOGLOBIN 33.3 pg (28.0-32.0); MEAN CORPUSCULAR HGB CONC 33.8 g/dL (31.0-37.0); MEAN CORPUSCULAR VOLUME 98.6 fL (81.0-99.0); MEAN PLATELET VOLUME 9.1 fl (7.4-10.4); MONOCYTES % 8.9 % (2.0-8.0); PLATELET 185 x1000/uL (130-400); RED BLOOD CELL COUNT 2.92 mill/uL (4.2-5.4); RED CELL DISTRIBUTION WIDTH 14.2 % (11.6-14.6); WHITE BLOOD COUNT 8.5 x1000/uL (4.5-11.0)
[2023-12-24 06:28] LABS: CHLORIDE 103 mEq/L (98-107); POTASSIUM 3.8 mEq/L (3.5-5.1); SODIUM 142 mEq/L (136-145)
[2023-12-24 06:29] LABS: CALCIUM 8.2 mg/dL (8.7-10.4); CARBON DIOXIDE 34 mEq/L (21-32)
[2023-12-24 06:34] LABS: GLUCOSE 116 mg/dL (70-105); UREA NITROGEN BLOOD 30 mg/dL (9-23)
[2023-12-24] MEDS: FUROSEMIDE 20MG TABLET PO SCH (08:22)
[2023-12-24 13:28] LABS: BG BASE EXCESS 7.7 mmol/L (-2.0-3.0); BG CARBOXYHEMOGLOBIN 0.1 % (0.5-1.5); BG DEOXYHEMOGLOBIN 4.6 % (0.0-5.0); BG FRACTION INSPIRED OXYGEN 30; BG HCO3 ACT 33.2 mmol/L (21.0-28.0); BG METHEMOGLOBIN 0.3 % (0.5-1.5); BG OXYGEN SATURATION 95.4 % (94.0-98.0); BG PCO2 51.1 mmHg (32.0-45.0); BG SAMPLE SITE RIGHT RADIAL; BG TOTAL HEMOGLOBIN 11.1 g/dL (12.0-16.0); BG VENT MODE VENT - CPAP
[2023-12-25] VITALS (103 sets, daily range): BP systolic 69–168; BP diastolic 38–150; PULSE 69–148; RESP 11–36; TEMP 36.61404–37.28076; O2SAT 94–100
[2023-12-25] MEDS: DEXMEDETOMIDINE 400 MCG/100 ML 100 ML IV PRN (03:53)
[2023-12-25] MEDS: METOPROLOL TARTRATE 25MG TABLET PO NR (04:42)
[2023-12-25] MEDS: DIGOXIN 500MCG/2ML AMP IV NR (09:01)
[2023-12-25] MEDS: SODIUM CHLORIDE 0.9% 1,000 ML IV SCH (09:02)
[2023-12-25] MEDS: POTASSIUM CHLORIDE 20MEQ/PACKET PO NR (09:07)
[2023-12-25] MEDS: ACETAMINOPHEN 325MG TABLET PO PRN (09:22)
[2023-12-25 09:43] LABS: BASOPHILS % 0.2 % (0.0-2.0); EOSINOPHILS % 1.9 % (0.0-5.0); HEMATOCRIT. 28.7 % (36.0-48.0); HEMOGLOBIN. 9.6 g/dL (12.0-16.0); LYMPHOCYTES % 16.2 % (20.0-50.0); MEAN CORPUSCULAR HGB CONC 33.3 g/dL (31.0-37.0); MEAN CORPUSCULAR VOLUME 98.9 fL (81.0-99.0); MEAN PLATELET VOLUME 9.3 fl (7.4-10.4); MONOCYTES % 8.7 % (2.0-8.0); PLATELET 183 x1000/uL (130-400); RED CELL DISTRIBUTION WIDTH 14.2 % (11.6-14.6); WHITE BLOOD COUNT 8.3 x1000/uL (4.5-11.0)
[2023-12-25 09:53] LABS: CALCIUM 8.2 mg/dL (8.7-10.4)
[2023-12-25 09:58] LABS: CREATININE 1.1 mg/dL (0.6-1.0)
[2023-12-25] MEDS: IPRATROPIUM/ALBUTEROL 0.5-3(2.5)MG/3ML NEB HHN SCH (12:02)
[2023-12-25] MEDS: FUROSEMIDE 40MG/4ML VIAL IVP SCH (13:02)
[2023-12-25] MEDS: ACETYLCYSTEINE 200MG/ML 20% VIAL 4ML INH SCH (15:39)
[2023-12-25] MEDS: DIGOXIN 500MCG/2ML AMP IV SCH (17:24)
[2023-12-25] MEDS ORDERED: GUAIFENESIN 600MG ER TABLET PO SCH (21:00)
[2023-12-25] MEDS: LORAZEPAM 2MG/ML INJ IV PRN (23:16)
== END 2023-12-25 23:26 | disposition short-term general hospital (02) | DRG 321 ==
LOC: ER 17:40 → CVICU 19:14 → EDBEDREQTM 19:31 → EDBEDREQ 19:31 → CVICU 12-20 04:20
PROVIDERS: ADMIT Internal Medicine; ATTEND Internal Medicine
PROC: 5A1955Z Respiratory Ventilation, Greater than 96 Consecutive Hours (ICD-10-PCS; principal; 2023-12-19)
PROC: 0BH18EZ Insertion of Endotracheal Airway into Trachea, Via Natural or Artificial Opening Endoscopic (ICD-10-PCS; 2023-12-19)
PROC: 02HV33Z Insertion of Infusion Device into Superior Vena Cava, Percutaneous Approach (ICD-10-PCS; 2023-12-20)
PROC: B548ZZA Ultrasonography of Superior Vena Cava, Guidance (ICD-10-PCS; 2023-12-20)
PROC: 027035Z Dilation of Coronary Artery, One Artery with Two Drug-eluting Intraluminal Devices, Percutaneous Approach (ICD-10-PCS; 2023-12-22)
PROC: 4A023N7 Measurement of Cardiac Sampling and Pressure, Left Heart, Percutaneous Approach (ICD-10-PCS; 2023-12-22)
PROC: B2111ZZ Fluoroscopy of Multiple Coronary Arteries using Low Osmolar Contrast (ICD-10-PCS; 2023-12-22)
PROC: B41G1ZZ Fluoroscopy of Left Lower Extremity Arteries using Low Osmolar Contrast (ICD-10-PCS; 2023-12-22)
PROC: B2131ZZ Fluoroscopy of Multiple Coronary Artery Bypass Grafts using Low Osmolar Contrast (ICD-10-PCS; 2023-12-22)
DX: I11.0 Hypertensive heart disease with heart failure (principal); I21.A1 Myocardial infarction type 2; J96.02 Acute respiratory failure with hypercapnia; I50.43 Acute on chronic combined systolic (congestive) and diastolic (congestive) heart failure; J18.9 Pneumonia, unspecified organism; J96.01 Acute respiratory failure with hypoxia; N17.9 Acute kidney failure, unspecified; I31.39 Other pericardial effusion (noninflammatory); I25.10 Atherosclerotic heart disease of native coronary artery without angina pectoris; E11.9 Type 2 diabetes mellitus without complications; G47.00 Insomnia, unspecified; I44.0 Atrioventricular block, first degree; I48.0 Paroxysmal atrial fibrillation; F41.9 Anxiety disorder, unspecified; I25.2 Old myocardial infarction; Z88.5 Allergy status to narcotic agent; Z79.01 Long term (current) use of anticoagulants; Z79.899 Other long term (current) drug therapy; Z90.49 Acquired absence of other specified parts of digestive tract
CPT/HCPCS: 31500; 36415; 36573; 36600; 71045; 80048; 80076; 80162; 81003; 82375; 82550; 82553; 82805; 82962; 83735; 83880; 84100; 84484; 85025; 85027; 85347; 85379; 87070; 92928; 93005; 93306; 93458; 93970; 94003; 94640; 99291; C1725; C1769; C1874; C1887; C1893; J0456; J0461; J1160; J1200; J1644; J1650; J1940; J2060; J2250; J2470; J2543; J3010; J3475; J3490; J7030; J7050; J7608; Q0163; Q9957; Q9967